=== PATIENT | male | born 1995 | race Caucasian/White ===

== ENCOUNTER 2022-08-12 11:29 | Observation (INO) ==
[2022-08-12] MEDS ORDERED: SODIUM CHLORIDE 0.9% 500 ML IV STA (11:37)
[2022-08-12 12:58] LABS: Basophils # (auto) 0.03 K/uL (0-0.2); Basophils % (auto) 0.4 %; Eosinophils # (auto) 0.04 K/uL (0-0.50); Eosinophils % (auto) 0.6 %; Hematocrit (blood only) 42.9 % (42.0-52.0); Hemoglobin 15.2 g/dl (14.0-18.0); Immature Granulocytes # (auto) 0.01 K/uL (0.01-0.20); Immature Granulocytes % (auto) 0.1 %; Lymphocytes # (auto) 1.29 K/uL (1.2-3.4); Lymphocytes % (auto) 19.3 %; Mean Corpuscular Hemoglobin 30.2 pg (25.0-34.0); Mean Corpuscular Hgb Conc 35.4 g/dL (32.0-36.0); Mean Corpuscular Volume 85.3 fL (80.0-100.0); Mean Platelet Volume 11.9 fL (9.4-12.4); Monocytes # (auto) 0.58 K/uL (0.11-0.59); Monocytes % (auto) 8.7 %; Neutrophils # (auto) 4.75 K/uL (1.40-6.50); Neutrophils % (auto) 70.9 %; Platelet Count 210 K/uL (130-400); RDW Coefficient of Variation 12.4 % (11.5-14.5); RDW Standard Deviation 38.4 fL (36.4-46.3); Red Blood Count 5.03 M/uL (4.70-6.10)
[2022-08-12 13:18] LABS: Alanine Aminotransferase 25 U/L (7-52); Albumin Globulin Ratio 1.5 (0.9-2); Albumin Level 4.4 gm/dl (3.4-5.0); Alkaline Phosphatase 63 U/L (34-104); Anion Gap 7 (3-11); Aspartate Aminotransferase 18 U/L (13-39); BUN Creatinine Ratio 6.8 (10-20); Bilirubin,Total 0.7 mg/dl (0.2-1.0); Blood Urea Nitrogen 7 mg/dl (6-23); Calcium 9.4 mg/dl (8.6-10.3); Carbon Dioxide 28 mmol/L (21-32); Chloride 104 mmol/L (98-107); Est GFR (Non-African American) 98.4 ml/min; Globulin 2.9 gm/dl (2.5-4.0); Glucose 106 mg/dl (70-99(Fasting)); Potassium 3.6 mmol/L (3.5-5.1); Sodium 139 mmol/L (136-145); Total Protein 7.3 gm/dl (6.0-8.3)
--- NOTE | 2022-08-12 13:46 | Emergency Department Note ---
ED Provider Note History of Present Illness Chief Complaint: Flank Pain Stated Complaint: STILL IN PAIN Time Seen by Provider: 08/12/22 13:40 This is a 27-year-old male with a history of asthma who presents with right back and abdominal pain. He has a known proximal ureteral stone on the right side that was initially identified on 08/09/2022 (6 mm) via CT scan. He was seen again in this emergency department last night for uncontrolled pain and vomiting. KUB demonstrated minimal progression of the stone. Patient was comfortable with being discharged home last night and had a urology appointment this morning and saw Dr. Cisneros who, per chart review, was hopeful the patient would be able to make it to 4 days from now (Monday) for an outpatient ureteroscopy and laser lithotripsy. Patient states that his pain has become much more severe (10 out of 10) and he has ongoing nausea. He took Zofran p.o. and 600 mg ibuprofen prior to coming to the emergency department. He has only vomited a little bit today. Has been drinking plenty of fluids. Was given 1 L IV fluids while waiting in the ED waiting room. He has ongoing blood in his urine. Denies any dysuria. The majority of his pain is located in the right low back and wraps around into his groin. Right now he describes pain "everywhere" and "like it is expanding." He has not had any fevers but does endorse chills. Home Medications Medication Instructions Recorded Confirmed Type ondansetron 4 mg disintegrating 4 mg PO Q8H PRN nausea and 08/09/22 08/12/22 Rx tablet vomiting #10 tabs oxycodone 5 mg tablet 5 mg PO Q6H PRN pain #12 tabs 08/09/22 08/12/22 Rx tamsulosin 0.4 mg capsule (Flomax) 0.4 mg PO DAILY #14 caps 08/09/22 08/12/22 Rx azelastine 137 mcg (0.1 %) nasal 2 spray intranasal BID 08/11/22 08/12/22 History spray aerosol montelukast 10 mg tablet 10 mg PO DAILY 08/11/22 08/12/22 History albuterol sulfate 90 mcg/actuation 2 puff inhalation UD PRN Shortness 08/12/22 08/12/22 History aerosol inhaler Of Breath Or Wheezing Allergies Allergy/AdvReac Type Severity Reaction Status Date / Time No Known Drug Allergies Allergy Verified 08/12/22 09:37 Past Med/Surg History Medical History Asthma Surgical History Hx of wisdom tooth extraction Social History Smoking Status: Never smoker Hx Alcohol Use: Yes Alcohol type: beer, wine and hard liquor Hx Substance Use: No Preferred Language: Croatian [employer] Director Required: No Beliefs That Will Affect Care: None Current Living Situation: Spouse Current Living Situation Comment: second floor apartment with stairs to enter Other Information That Helps Us Care for You: No Feels Safe at Home: Yes Safety Concerns: Feels Safe At This Time Assistive Devices: None Physical Exam Vital Signs Vital Signs - 24 hr 08/12/22 11:30 08/12/22 13:47 08/12/22 14:29 Temperature 98.4 F Temperature Source Temporal Artery Scan Pulse Rate 64 Pulse Rate [Finger] 71 Respiratory Rate 20 20 Respiratory Effort / Characteristics Non-Labored Spontaneous Non-Labored Spontaneous Respiratory Depth Normal Normal Blood Pressure 143/83 H Blood Pressure [Right Arm] 145/76 H Blood Pressure Mean 103 Blood Pressure Mean [Right Arm] 99 Pulse Oximetry 96 98 94 Oxygen Delivery Method Room Air Room Air Room Air Sepsis Recent Fever Within 48 Hours No Sepsis New/Unexplained Change in Mental Status No Sepsis Action Taken by Nursing No Action Required CONSTITUTIONAL: Well developed, well nourished, in a moderate amount of pain with eyes closed, rocking back and forth moaning. HEAD: Normocephalic, atraumatic. EYES: conjunctivae normal, extraocular muscles intact. ENMT: External ears normal. Nose with normal external appearance, no congestion. Oral mucous membranes moist. Oropharynx normal. NECK: Full active range of motion. RESPIRATORY: Breathing unlabored and symmetric. Lungs clear to auscultation bilaterally. No wheeze, rales, or rhonchi. CARDIOVASCULAR: Regular rate and rhythm. No murmurs, rubs, or gallops. ABDOMEN: Normal bowel sounds. Soft, nontender, no peritonitis. No masses. No CVA tenderness bilaterally. MUSCULOSKELETAL: Moves all extremities at all joints without pain or difficulty. No cyanosis or edema. SKIN: [place], warm, dry. NEUROLOGIC: Awake, alert, oriented. Gaze is conjugate. Face symmetric. Moves head and all four extremities spontaneously. Course Administered Medications Acetaminophen (Acetaminophen 500 Mg Tab) 1,000 mg PO TID [facility] Stop: 09/11/22 20:59 Last Admin: 08/12/22 20:43 Dose: 1,000 mg Documented By: HAYDEE Potassium Chloride/Sodium Chloride (1/2 Nss + 20meq Kcl 1000ml) 20 meq in 1,000 mls @ 125 mls/hr IV .Q8H [facility]; Protocol Stop: 09/11/22 18:22 Last Admin: 08/12/22 19:42 Dose: 125 mls/hr Documented By: HAYDEE Ketorolac Tromethamine (Ketorolac 30 Mg/Ml Vial) 30 mg IV Q6H [facility] Stop: 08/13/22 12:24 Last Admin: 08/12/22 18:55 Dose: 30 mg Documented By: JHON Ondansetron HCl (Ondansetron Inj 2 Mg/Ml 2 Ml Vial) 4 mg IV Q6H PRN PRN Reason: Nausea And Vomiting Stop: 08/13/22 07:00 Last Admin: 08/12/22 20:43 Dose: 4 mg Documented By: HAYDEE Discontinued Medications Hydromorphone HCl (Hydromorphone Inj 0.5 Mg/0.5 Ml Syr) 0.5 mg IV NOW STA Stop: 08/12/22 14:00 Last Admin: 08/12/22 14:16 Dose: 0.5 mg Documented By: ELIZABETH Hydromorphone HCl (Hydromorphone Inj 0.5 Mg/0.5 Ml Syr) 0.5 mg IV NOW STA Stop: 08/12/22 15:46 Last Admin: 08/12/22 15:54 Dose: 0.5 mg Documented By: CHUCK Sodium Chloride (Nss) 500 mls @ 999 mls/hr IV .Q31M STA Stop: 08/12/22 12:07 Last Infusion: 08/12/22 13:51 Dose: 0 mls/hr Documented By: Admin: 08/12/22 13:00 Dose: 999 mls/hr Documented By: AYLEEN Acetaminophen (Ofirmev) 1,000 mg in 100 mls @ 400 mls/hr IV NOW STA Stop: 08/12/22 14:13 Last Infusion: 08/12/22 14:41 Dose: 0 mls/hr Documented By: Admin: 08/12/22 14:16 Dose: 400 mls/hr Documented By: ELIZABETH Sodium Chloride (Nss 1000ml) 1,000 mls @ 999 mls/hr IV .Q1H1M ONE Stop: 08/12/22 16:45 Last Infusion: 08/12/22 18:26 Dose: 0 mls/hr Documented By: Admin: 08/12/22 15:55 Dose: 999 mls/hr Documented By: CHUCK Lactated Ringer's (Lr) 1,000 mls @ 999 mls/hr IV .Q1H1M ONE Stop: 08/12/22 18:21 Last Admin: 08/12/22 18:26 Dose: Not Given Documented By: KDSofia Sodium Chloride (Nss 1000ml) 1,000 mls @ 999 mls/hr IV .Q1H1M [facility] Stop: 08/12/22 18:35 Last Infusion: 08/12/22 19:31 Dose: 0 mls/hr Documented By: Admin: 08/12/22 18:30 Dose: 999 mls/hr Documented By: JHON Ketorolac Tromethamine (Ketorolac Tromethamine 15 Mg/Ml Vial) 15 mg IV NOW STA Stop: 08/12/22 17:20 Last Admin: 08/12/22 17:55 Dose: 15 mg Documented By: CHUCK Medical Decision Making Differential Diagnosis Renal colic, hydronephrosis, UTI, pyelonephritis, musculoskeletal pain, muscle spasm, uncontrolled pain, among other pathology Medical Records Attestation: I reviewed the patient's medical records. (Reviewed prior ED and urology notes) Laboratory Data 08/12/22 12:15 08/12/22 12:15 Lab Results 08/12/22 08/12/22 08/12/22 Range/Units 12:15 12:15 13:59 WBC 6.70 (4.8-10.8) K/ul RBC 5.03 (4.70-6.10) M/uL Hgb 15.2 (14.0-18.0) g/dl Hct 42.9 (42.0-52.0) % MCV 85.3 (80.0-100.0) fL MCH 30.2 (25.0-34.0) pg MCHC 35.4 (32.0-36.0) g/dL RDW Std Deviation 38.4 (36.4-46.3) fL RDW Coeff of Sonu 12.4 (11.5-14.5) % Plt Count 210 (130-400) K/uL MPV 11.9 (9.4-12.4) fL Immature Gran % (Auto) 0.1 % Neut % (Auto) 70.9 % Lymph % (Auto) 19.3 % [place] % (Auto) 8.7 % Eos % (Auto) 0.6 % Baso % (Auto) 0.4 % Neut # (Auto) 4.75 (1.40-6.50) K/uL Lymph # (Auto) 1.29 (1.2-3.4) K/uL [place] # (Auto) 0.58 (0.11-0.59) K/uL Eos # (Auto) 0.04 (0-0.50) K/uL Baso # (Auto) 0.03 (0-0.2) K/uL Immature Gran # (Auto) 0.01 (0.01-0.20) K/uL Sodium 139 (136-145) mmol/L Potassium 3.6 (3.5-5.1) mmol/L Chloride 104 (98-107) mmol/L Carbon Dioxide 28 (21-32) mmol/L Anion Gap 7 (3-11) BUN 7 (6-23) mg/dl Creatinine 1.03 (0.6-1.4) mg/dl Est Cr Clr Drug Dosing Not Reportable Est GFR ( Amer) 114.0 ml/min Est GFR (Non-Af Amer) 98.4 ml/min BUN/Creatinine Ratio 6.8 L (10-20) Glucose 106 H (70-99(Fasting)) mg/dl Calcium 9.4 (8.6-10.3) mg/dl Total Bilirubin 0.7 (0.2-1.0) mg/dl AST 18 (13-39) U/L ALT 25 (7-52) U/L Alkaline Phosphatase 63 (34-104) U/L Total Protein 7.3 (6.0-8.3) gm/dl Albumin 4.4 (3.4-5.0) gm/dl Globulin 2.9 (2.5-4.0) gm/dl Albumin/Globulin Ratio 1.5 (0.9-2) Lipase 6 L Cancelled (11-82) U/L Urine Color Urine Appearance (Clear) Urine pH (4.5-7.5) Ur Specific [place] (1.000-1.030) Urine Protein (Negative) Urine Glucose (UA) (Negative) Urine Ketones (Negative) Urine Blood (Negative) Urine Nitrite (Negative) Urine Bilirubin (Negative) Urine Urobilinogen (Negative) Ur Leukocyte Esterase (Negative) Urine WBC (Auto) (0-5) /hpf Urine RBC (Auto) (0-4) /hpf U Hyaline Cast (Auto) (0-5) /lpf U Epithel Cells (Auto) (0-5) /lpf Urine Bacteria (Auto) (Negative) SARS-CoV-2, RNA, NAAT (NEGATIVE) 08/12/22 08/12/22 Range/Units 14:20 15:18 WBC (4.8-10.8) K/ul RBC (4.70-6.10) M/uL Hgb (14.0-18.0) g/dl Hct (42.0-52.0) % MCV (80.0-100.0) fL MCH (25.0-34.0) pg MCHC (32.0-36.0) g/dL RDW Std Deviation (36.4-46.3) fL RDW Coeff of Sonu (11.5-14.5) % Plt Count (130-400) K/uL MPV (9.4-12.4) fL Immature Gran % (Auto) % Neut % (Auto) % Lymph % (Auto) % [place] % (Auto) % Eos % (Auto) % Baso % (Auto) % Neut # (Auto) (1.40-6.50) K/uL Lymph # (Auto) (1.2-3.4) K/uL [place] # (Auto) (0.11-0.59) K/uL Eos # (Auto) (0-0.50) K/uL Baso # (Auto) (0-0.2) K/uL Immature Gran # (Auto) (0.01-0.20) K/uL Sodium (136-145) mmol/L Potassium (3.5-5.1) mmol/L Chloride (98-107) mmol/L Carbon Dioxide (21-32) mmol/L Anion Gap (3-11) BUN (6-23) mg/dl Creatinine (0.6-1.4) mg/dl Est Cr Clr Drug Dosing Est GFR ( Amer) ml/min Est GFR (Non-Af Amer) ml/min BUN/Creatinine Ratio (10-20) Glucose (70-99(Fasting)) mg/dl Calcium (8.6-10.3) mg/dl Total Bilirubin (0.2-1.0) mg/dl AST (13-39) U/L ALT (7-52) U/L Alkaline Phosphatase (34-104) U/L Total Protein (6.0-8.3) gm/dl Albumin (3.4-5.0) gm/dl Globulin (2.5-4.0) gm/dl Albumin/Globulin Ratio (0.9-2) Lipase (11-82) U/L Urine Color Yellow Urine Appearance Clear (Clear) Urine pH 5.5 (4.5-7.5) Ur Specific [place] 1.014 (1.000-1.030) Urine Protein Negative (Negative) Urine Glucose (UA) Negative (Negative) Urine Ketones Trace H (Negative) Urine Blood 3+ H (Negative) Urine Nitrite Negative (Negative) Urine Bilirubin Negative (Negative) Urine Urobilinogen Negative (Negative) Ur Leukocyte Esterase Negative (Negative) Urine WBC (Auto) 1-5 (0-5) /hpf Urine RBC (Auto) >30 H (0-4) /hpf U Hyaline Cast (Auto) 0 (0-5) /lpf U Epithel Cells (Auto) 0-5 (0-5) /lpf Urine Bacteria (Auto) Negative (Negative) SARS-CoV-2, RNA, NAAT NEGATIVE (NEGATIVE) MDM Narrative This is a 27-year-old male who returns to the emergency department for his third visit secondary to a right proximal ureteral stone that was initially identified 3 days ago in this emergency department. Recent KUB from yesterday demonstrates minimal progression of the stone. He saw urology this morning who planned a ureteroscopy and laser lithotripsy for 4 days from now however the patient has 10 out of 10 pain despite taking oxycodone and does not feel he can wait that long. On initial exam he does appear to be in a moderate amount of pain, rocking back and forth and moaning. Remainder of exam is unremarkable, vitals are reassuring. He was given IV Dilaudid, IV Tylenol, and IV fluids. Labs: No leukocytosis or anemia. No electrolyte disturbances. Normal renal fu nction. Urine with no evidence of infection, 3+ blood is present. Patient required an additional dose of IV Dilaudid in the emergency department. I discussed admission versus discharge with him and the individual accompanying him and it was felt that the patient would return again with uncontrolled pain as this has been ongoing since he was initially diagnosed with a stone several days ago. I did discuss the case with Dr. Parker (urology on-call) who stated taking the patient to the OR would be feasible within the next few days depending on OR availability. Discussed the case with [facility] hospitalist group Dr. Dykes who will admit the patient for further management and urology consult. Impression Renal colic on right side, Uncontrolled pain, Hematuria Discharge Plan Visit Data Chief Complaint: Flank Pain Stated Complaint: STILL IN PAIN ED Provider: Mayra Cano ED Midlevel Provider: Júnior Hobbs Discharge Problem: Renal colic on right side, Uncontrolled pain, Hematuria Patient Disposition: Admitted As Inpatient Condition: Fair Discharge Instructions Interventions: ED Discharge Assessment Last Done: 08/12/22 18:35
[2022-08-12] MEDS ORDERED: HYDROmorphone INJ 0.5 MG/0.5 ML SYR IV STA ×2 (13:59→15:45)
[2022-08-12] MEDS ORDERED: ACETAMINOPHEN 1,000 MG/100 ML VIAL IV STA (13:59)
[2022-08-12 14:44] LABS: Lipase 6 U/L (11-82)
[2022-08-12] MEDS ORDERED: SODIUM CHLORIDE 0.9% 1000ML 1,000 ML IV ONE (15:45)
[2022-08-12 16:04] LABS: Appearance Urine Clear (Clear); Bacteria Urine Automated Negative (Negative); Bilirubin Urine Negative (Negative); Blood Urine 3+ (Negative); Cast Urine Automated 0 /lpf (0-5); Color Urine Yellow; Epithelial Cell Urine Auto 0-5 /lpf (0-5); Glucose Urine UA Negative (Negative); Ketones Urine Trace (Negative); Leukocyte Esterase Urine Negative (Negative); Nitrite Urine Negative (Negative); Protein Urine Negative (Negative); RBC Urine Automated >30 /hpf (0-4); Specific Gravity Urine 1.014 (1.000-1.030); Urobilinogen Urine Negative (Negative); pH Urine 5.5 (4.5-7.5)
[2022-08-12] MEDS ORDERED: KETOROLAC TROMETHAMINE 15 MG/ML VIAL IV STA (17:19)
[2022-08-12] MEDS ORDERED: LACTATED RINGER'S 1,000 ML IV ONE (17:21)
[2022-08-12] MEDS ORDERED: SODIUM CHLORIDE 0.9% 1000ML 1,000 ML IV SCH (17:35)
--- NOTE | 2022-08-12 17:37 | History & Physical Report ---
Date of Service August 12, 2022 Assessment & Plan (1) Calculus of proximal right ureter: Plan: IV fluids Pain management with acetaminophen 1g PO TID BANDAR, Toradol 30mg IV q6h, morphine 4mg IV PRN for breakthrough pain Continue tamsulosin NPO after midnight Consult urology - discussed with Dr Parker, hopefully plan on stent tomorrow (2) Renal colic on right side: (3) Hydronephrosis: Admission and Anticipated Discharge Date Admission Date: August 12, 2022 History of Present Illness Chief Complaint: Flank pain Primary Care Provider: Dank Choe DO Mohsen Crisostomo is a 27 year old male who presents to the ER with flank pain. He was in the Er on August 09 and diagnosed with a 6mm kidney stone in the proximal right ureter. He was discharged with pain medication, tamsulosin and follow up with urology. He returned to the ER yesterday with nausea, vomiting and XR KUB showing minimal migration of the stone. He followed up with urology earlier today and tentatively planned for lithotripsy on Monday. However his flank pain severity 10/10 is getting longer in duration and increased frequency of attacks. No radiation. No dysuria, fever or chills. Today he took acetaminophen, Advil and oxycodone and felt his pain did not improve. Case was discussed with Dr Parker. The patient does not feels he is able to cope at home at this time. Urology planning on cystoscopy and ureteral stent placement tomorrow. Allergies Allergy/AdvReac Type Severity Reaction Status Date / Time No Known Drug Allergies Allergy Verified 08/12/22 09:37 Home Medications Medication Instructions Recorded Confirmed Type ondansetron 4 mg disintegrating 4 mg PO Q8H PRN nausea and 08/09/22 08/12/22 Rx tablet vomiting #10 tabs oxycodone 5 mg tablet 5 mg PO Q6H PRN pain #12 tabs 08/09/22 08/12/22 Rx tamsulosin 0.4 mg capsule (Flomax) 0.4 mg PO DAILY #14 caps 08/09/22 08/12/22 Rx azelastine 137 mcg (0.1 %) nasal 2 spray intranasal BID 08/11/22 08/12/22 History spray aerosol montelukast 10 mg tablet 10 mg PO DAILY 08/11/22 08/12/22 History albuterol sulfate 90 mcg/actuation 2 puff inhalation UD PRN Shortness 08/12/22 08/12/22 History aerosol inhaler Of Breath Or Wheezing Past Med/Surg History Medical History Asthma Surgical History Hx of wisdom tooth extraction Social History Smoking Status: Never smoker Hx Alcohol Use: Yes Alcohol type: beer, wine and hard liquor Hx Substance Use: No Preferred Language: Marshallese Vegetable Tester Required: No Beliefs That Will Affect Care: None Current Living Situation: Spouse Current Living Situation Comment: second floor apartment with stairs to enter Other Information That Helps Us Care for You: No Feels Safe at Home: Yes Safety Concerns: Feels Safe At This Time Assistive Devices: None Review of Systems Review of Systems: All systems reviewed & are unremarkable except as noted in HPI & below Physical Exam Constitutional: WD/WN, vitals as above Respiratory: normal respiratory effort, lungs clear to auscultation Cardiovascular: RRR, no murmur, no edema Gastrointestinal (Abdomen): normal bowel sounds, soft, nontender, no hepatosplenomegaly Skin: no rashes, warm and dry Neurologic: moves all extremities and awake; not confused Genitourinary: + CVA tenderness (right) Results & Data Results & Data Vital Signs (Past 12 Hours) Vital Signs Temp Pulse Pulse Resp BP BP Pulse Ox 08/12/22 14:29 94 08/12/22 13:47 71 20 145/76 H 98 08/12/22 11:30 36.9 C 64 20 143/83 H 96 O2 Del Method 08/12/22 14:29 Room Air 08/12/22 13:47 Room Air 08/12/22 11:30 Room Air Laboratory Results Abnormal lab results 08/12/22 08/12/22 Range/Units 12:15 15:18 BUN/Creatinine Ratio 6.8 L (10-20) Glucose 106 H (70-99(Fasting)) mg/dl Lipase 6 L (11-82) U/L Urine Ketones Trace H (Negative) Urine Blood 3+ H (Negative) Urine RBC (Auto) >30 H (0-4) /hpf Diagnostic Findings KUB CLINICAL HISTORY: Right ureteral stone. COMPARISON STUDY: CT of the abdomen and pelvis August 09, 2022. FINDINGS: There has been minimal distal migration of a 4 mm proximal right ureteral calculus. No additional urinary calculi are identified. Bowel gas pattern is normal. IMPRESSION: Minimal distal migration of a 4 mm proximal right ureteral calculus. Medications Administered ER Medications Given: NSS 500ml bolus Dilaudid 0.5mg IV Acetaminophen 1000mg IV NSS 1000ml bolus Code Status & VTE Plan Code Status Full VTE Prophylaxis Plan VTE Prophylaxis will be ordered: No Reason for no VTE drug order: Treatment not indicated PG Care Time/CCT Total # of Minutes Spent Total Time Spent with Patient: Total time spent is greater than 50% in coordination of care (as documented) at patient's floor/unit and/or counseling patient: Coding Level of Care Code 33544 INT INP/OBS CARE 2/55MIN Diagnoses Calculus of proximal right ureter N20.1 Renal colic on right side N23 Hydronephrosis N13.30
[2022-08-12] MEDS: KETOROLAC 30 MG/ML VIAL IV SCH (18:55)
[2022-08-12] MEDS: SODIUM CHLOR 0.45% + 20MEQ KCL 20 MEQ/1,000 ML BAG IV SCH (19:42)
[2022-08-12] MEDS: ACETAMINOPHEN 500 MG TAB PO SCH (20:43)
[2022-08-12] MEDS: ONDANSETRON INJ 2 MG/ML 2 ML VIAL IV PRN (20:43)
--- NOTE | 2022-08-12 21:45 | Urology Consultation ---
Date of Consultation August 12, 2022 Assessment & Plan (1) Right distal ureteral calculus: Patient has been admitted on the hospitalist service. Recommend proceeding as follows: Provide analgesicsprovide antiemetics Provide IV fluid for hydration Provide Flomax for expulsive therapy Due to the patient's unremitting pain he is tentatively scheduled for cystoscopy with Dr. Parker tomorrow. I do not feel an urgent operation is required at this time as the patient is normotensive without tachycardia or leukocytosis. He is also noted to be afebrile. Patient should be n.p.o. after midnight tonight. Additional recommendations be forthcoming based on operative findings and his postoperative recovery History of Present Illness Reason for Consultation: Nephrolithiasis Attending Physician: Anibal Dykes MD History of Present Illness This is a 27-year-old male who was seen in the emergency department on 08/09/2022 as well as 08/11/2022 secondary to right flank pain. The patient notes that his pain is primarily in the right flank with some radiation to his abdomen. He did have some nausea and vomiting but denies any fevers, shakes, or chills. He denies any urinary symptoms such as dysuria or visible hematuria. While in the emergency department the patient did have imaging performed during each visit.. The patient did have a CT scan on 08/09/2022. This study showed the patient had a 6 mm obstructing kidney stone in the right proximal ureter resulting in right- sided hydronephrosis. In addition the patient had a KUB x-ray performed on 08/11/2022. This did show some distal migration of the previously noted stone which was measured at approximately 4 mm on this study. Patient also had labs performed in the emergency department and during both visits CBC revealed white blood cell count, hemoglobin, hematocrit, platelet count were within normal range. He also had chemistry profiles at which time both visits showed his sodium and potassium were normal. His BUN and creatinine were also noted be normal during each visit. The patient did have a urinalysis during his visit on 08/09/2022 that did show negative nitrites but trace leukocyte Estrace. There is no bacteria on the study and only 5-10 white blood cells per high-power field. The patient was able to be discharged with outpatient follow-up. The patient did see Dr. Cisneros in the office today and plans were put in place for patient to have a cystoscopy with possible laser lithotripsy next week. Patient notes that his pain returned and was unremitting so he presented to the emergency department. Today in the emergency department the patient had repeat labs were CBC revealed white blood cell count, hemoglobin, hematocrit, platelet count were all normal. Chemistry profile again demonstrated normal potassium, sodium, BUN, and creatinine. Urinalysis was repeated that again was negative for nitrites and this study was negative for leukocyte Estrace. There were only 1-5 white blood cells per high-power field and no bacteria. Since admission the hospital the patient notes that his pain is currently well controlled. He does report he has had several episodes of nausea and vomiting since his kidney stone began giving him troubles. He has not had any visible hematuria and he denies dysuria. He denies any fevers, shakes, or chills as noted during his previous visits. At the time my interview he was resting comfortably in bed he was in no distress. Allergies Allergy/AdvReac Type Severity Reaction Status Date / Time No Known Drug Allergies Allergy Verified 08/12/22 09:37 Home Medications Medication Instructions Recorded Confirmed Type ondansetron 4 mg disintegrating 4 mg PO Q8H PRN nausea and 08/09/22 08/12/22 Rx tablet vomiting #10 tabs oxycodone 5 mg tablet 5 mg PO Q6H PRN pain #12 tabs 08/09/22 08/12/22 Rx tamsulosin 0.4 mg capsule (Flomax) 0.4 mg PO DAILY #14 caps 08/09/22 08/12/22 Rx azelastine 137 mcg (0.1 %) nasal 2 spray intranasal BID 08/11/22 08/12/22 History spray aerosol montelukast 10 mg tablet 10 mg PO DAILY 08/11/22 08/12/22 History albuterol sulfate 90 mcg/actuation 2 puff inhalation UD PRN Shortness 08/12/22 08/12/22 History aerosol inhaler Of Breath Or Wheezing Patient History Medical History Asthma Surgical History Hx of wisdom tooth extraction Social History Smoking Status: Never smoker Hx Alcohol Use: Yes Alcohol type: beer, wine and hard liquor Hx Substance Use: No Preferred Language: Kinyarwanda [employer] Cashier Required: No Beliefs That Will Affect Care: None Current Living Situation: Spouse Current Living Situation Comment: second floor apartment with stairs to enter Other Information That Helps Us Care for You: No Feels Safe at Home: Yes Safety Concerns: Feels Safe At This Time Assistive Devices: None Review of Systems Constitutional: no fever and no chills Eyes: no eye pain Ear, Nose, Mouth, Throat: no ear pain Respiratory: no cough and no dyspnea Cardiovascular: no chest pain Gastrointestinal: + abdominal pain (Radiating from right flank), + nausea and + vomiting Genitourinary: + as per Subjective / HPI Musculoskeletal: + back pain (Right flank) Integumentary: no rash Neurologic: no localized weakness Physical Exam Constitutional: WD/WN, vitals as above Eyes: no conjunctival abnormality ENMT: Ears: no hearing impairment and no external ear abnormality Mouth: no oropharynx abnormality Neck: trachea midline Respiratory: normal respiratory effort; no respiratory distress and no labored breathing Cardiovascular: Rate/Rhythm: regular rate and regular rhythm Gastrointestinal (Abdomen): Soft and nondistended. Musculoskeletal: No calf tenderness Skin: no rashes Neurologic: moves all extremities Psychiatric: A+Ox3, euthymic affect Genitourinary: no CVA tenderness (No CVA tenderness noted the time of my exam) Results & Data Vital Signs (Past 12 Hours) Vital Signs Temp Pulse Pulse Resp BP BP Pulse Ox 08/12/22 18:35 08/12/22 18:30 37 C 68 18 139/80 95 08/12/22 14:29 94 08/12/22 13:47 71 20 145/76 H 98 08/12/22 11:30 36.9 C 64 20 143/83 H 96 O2 Del Method 08/12/22 18:35 Room Air 08/12/22 18:30 Room Air 08/12/22 14:29 Room Air 08/12/22 13:47 Room Air 08/12/22 11:30 Room Air PG Care Time/CCT Total # of Minutes Spent Total Time Spent with Patient: Total time spent is greater than 50% in coordination of care (as documented) at patient's floor/unit and/or counseling patient: Coding Level of Care Code 18647 OFFICE CONSULT LVL Diagnoses Right distal ureteral calculus N20.1
[2022-08-13] MEDS: KETOROLAC 30 MG/ML VIAL IV SCH ×4 (00:12→20:45)
[2022-08-13] MEDS: SODIUM CHLOR 0.45% + 20MEQ KCL 20 MEQ/1,000 ML BAG IV SCH ×3 (03:36→20:44)
[2022-08-13] MEDS: ONDANSETRON INJ 2 MG/ML 2 ML VIAL IV PRN (03:38)
--- NOTE | 2022-08-13 06:53 | Anesthesiology Consultation ---
Date of Service August 13, 2022 Assessment & Plan Chart Review Chart Review: Acceptable Risk for Surgery and Patient NOT seen in Pre Admission Testing Consults Requested none ASA ASA2 Proposed Anesthesia Anesthesia Type: General History Surgery Operation Date: 08/13/22 07:30 Proposed Procedures p Cystoscopy, Right Ureteroscopy, Stone Basketing and Right Stent Placement([facility]) - Elder Parker, DO Height/Weight Height: 5 ft 9 in Weight: 77.111 kg Allergies Allergy/AdvReac Type Severity Reaction Status Date / Time No Known Drug Allergies Allergy Verified 08/12/22 09:37 Medications Home Medications Medication Instructions Recorded Confirmed Last Taken ondansetron 4 mg disintegrating 4 mg PO Q8H PRN nausea and 08/09/22 08/12/22 Unknown tablet vomiting #10 tabs oxycodone 5 mg tablet 5 mg PO Q6H PRN pain #12 tabs 08/09/22 08/12/22 Unknown tamsulosin 0.4 mg capsule (Flomax) 0.4 mg PO DAILY #14 caps 08/09/22 08/12/22 Unknown azelastine 137 mcg (0.1 %) nasal 2 spray intranasal BID 08/11/22 08/12/22 Unknown spray aerosol montelukast 10 mg tablet 10 mg PO DAILY 08/11/22 08/12/22 Unknown albuterol sulfate 90 mcg/actuation 2 puff inhalation UD PRN Shortness 08/12/22 08/12/22 Unknown aerosol inhaler Of Breath Or Wheezing Active Medications Generic Name Dose Route Start Last Admin Trade Name Freq PRN Reason Stop Dose Admin Acetaminophen 1,000 mg 08/12/22 21:00 08/12/22 20:43 Acetaminophen 500 Mg Tab PO 09/11/22 20:59 1,000 mg TID BANDAR Administration Potassium Chloride/Sodium Chloride 20 meq in 1,000 mls @ 125 mls/hr 08/12/22 18:23 08/13/22 03:36 1/2 Nss + 20meq Kcl 1000ml IV 09/11/22 18:22 125 mls/hr .Q8H BANDAR Administration Protocol Ketorolac Tromethamine 30 mg 08/12/22 18:23 08/13/22 06:03 Ketorolac 30 Mg/Ml Vial IV 08/13/22 12:24 30 mg Q6H BANDAR Administration Ondansetron HCl 4 mg 08/12/22 20:04 08/13/22 03:38 Ondansetron Inj 2 Mg/Ml 2 Ml Vial IV 08/13/22 07:00 4 mg Q6H PRN Administration Nausea And Vomiting Past Medical History Medical History Asthma right hydronephrosis Exercise / Class Metabolic Activity II 4-5 Yardwork/Stairs/Walk up hill Past Surgical History Surgical History Hx of wisdom tooth extraction Past Anesthesia History No Hx of Anesthesia Complications and No Family Hx of Anesthesia Complications History of PONV No Hx of PONV and No Hx of Motion Sickness Social History Smoking Status: Never smoker Hx Alcohol Use: Yes Alcohol type: beer, wine and hard liquor alcohol intake frequency: a few times a week Hx Substance Use: No Physical Exam Vital Signs Last Vital Signs Temp 36.7 C 08/12/22 21:53 Pulse 72 08/12/22 21:53 Resp 16 08/12/22 21:53 BP 125/70 08/12/22 21:53 Pulse Ox 97 08/12/22 21:53 O2 Del Method Room Air 08/12/22 21:53 Testing Laboratory Results 08/12/22 12:15 08/12/22 12:15 Urine Color Yellow 08/12/22 15:18 Urine Appearance Clear (Clear) 08/12/22 15:18 Urine pH 5.5 (4.5-7.5) 08/12/22 15:18 Ur Specific [place] 1.014 (1.000-1.030) 08/12/22 15:18 Urine Protein Negative (Negative) 08/12/22 15:18 Urine Glucose (UA) Negative (Negative) 08/12/22 15:18 Urine Ketones Trace (Negative) H 08/12/22 15:18 Urine Nitrite Negative (Negative) 08/12/22 15:18 Ur Leukocyte Esterase Negative (Negative) 08/12/22 15:18 Urine WBC (Auto) 1-5 /hpf (0-5) 08/12/22 15:18 Urine RBC (Auto) >30 /hpf (0-4) H 08/12/22 15:18 U Hyaline Cast (Auto) 0 /lpf (0-5) 08/12/22 15:18 U Epithel Cells (Auto) 0-5 /lpf (0-5) 08/12/22 15:18 Urine Bacteria (Auto) Negative (Negative) 08/12/22 15:18
--- NOTE | 2022-08-13 07:03 | Urology Progress Note ---
Date of Service August 13, 2022 Assessment & Plan (1) Right distal ureteral calculus: Plan Patient with right obstructing ureteral stone and considerable pain and discomfort. Has been unable to pass stone. Continues to have pain episodes with discomfort. Patient has baseline medical history of asthma. Has been tolerating medications but continues to have issues. COVID test was negative. White count is 6.7. Creatinine is 1.03. Patient is currently afebrile. Continues to have severe pain without uncontrollable episodes of time. Risks and benefits discussed at length for procedure. These include bleeding, infection, injury to surrounding tissues or organs, and risks associated with anesthesia. Patient states understanding and agrees to proceed. Will sign consent and proceed. Plan for cystoscopy with possible ureteroscopy and stone treatment on right. Admission and Anticipated Discharge Date Admission Date: August 12, 2022 Subjective Patient admitted with stone and discomfort. Patient is afebrile. Has been undergoing maximum expulsion therapy with oral medications, IV medications, IV fluids, and oral intake. Has not seen stone pass. Has been having discomfort but no severe uncontrollable pain or major issues. Has not developed severe vomiting or other issues. Has not experienced fever or chills. Has been tolerating medications. Is tolerating IV fluids. Has noticed some frequency and urgency. Continued back and flank pain. Does have occasional burning and irritation. No severe episodes or major changes. Patient does not believe the passed a stone. Has not passed a large amount of blood or debris that may be the stone. Review of Systems Review of Systems: All systems reviewed & are unremarkable except as noted in HPI & below Physical Exam Physical Exam: General: Alert and oriented x 3 in no acute distress. Patient is well nourished and well kept. HEENT: Normocephalic Atraumatic. Inspection normal. Cranial Nerves 2-12 Grossly intact. Nares are clear. Neck is supple. Normal inspection of face. Normal inspection of neck. Neurologic: No deficits on inspection. Baseline for motor function and sensory. Psychologic: Normal affect. Respiratory: Nonlabored. No use of accessory muscles. No tachypnea or dyspnea. Cardiovascular: No tachycardia Skin: [place] and Dry. No rashes or visible lesions. Extremities: Moving without issues. No motor deficits on inspection Lymphatics: No edema Abdomen: Soft Non-distended. No acites. No rebound or guarding. Results & Data Vital Signs (Past 12 Hours) Vital Signs Temp Pulse Resp BP Pulse Ox O2 Del Method 08/12/22 21:53 36.7 C 72 16 125/70 97 Room Air PG Care Time/CCT Total # of Minutes Spent Total Time Spent with Patient: Total time spent is greater than 50% in coordination of care (as documented) at patient's floor/unit and/or counseling patient: Coding Level of Care Code 37023 SUB INP/OBS CARE 3/50MIN Diagnoses Right distal ureteral calculus N20.1
[2022-08-13] MEDS ORDERED: MIDAZOLAM HCL 1 MG/ML 2ML VIAL ONE (07:23)
[2022-08-13] MEDS ORDERED: PROPOFOL IV EMULSION 10 MG/ML 20 ML VIAL IV ONE ×2 (07:23→08:04)
[2022-08-13] MEDS ORDERED: fentaNYL citrate PF 100 MCG/2 ML VIAL ONE (07:24)
[2022-08-13] MEDS ORDERED: fentaNYL citrate PF 100 MCG/2 ML VIAL IV PRN (07:37)
[2022-08-13] MEDS ORDERED: ATROPINE SULFATE 0.1 MG/ML 10ML SYR IV PRN (07:37)
[2022-08-13] MEDS ORDERED: PROMETHAZINE HCL 12.5 MG in SODIUM CHLORIDE 0.9% 50 ML IV PRN (07:37)
[2022-08-13] MEDS ORDERED: LABETALOL HCL IV 5 MG/ML 20ML IV PRN (07:37)
[2022-08-13] MEDS ORDERED: NALOXONE HCL 0.4 MG/1 ML VIAL/CARP IV PRN (07:37)
[2022-08-13] MEDS ORDERED: FLUMAZENIL 0.1 MG/1 ML 10 ML VIAL IV PRN (07:37)
[2022-08-13] MEDS ORDERED: ePHEDrine sulfate 50 MG/ML AMP IV PRN (07:37)
[2022-08-13] MEDS ORDERED: ONDANSETRON INJ 2 MG/ML 2 ML VIAL IV PRN ×2 (07:37→15:40)
[2022-08-13] MEDS ORDERED: ceFAZolin 330 MG/ML 1 GM VIAL ONE (07:58)
[2022-08-13] MEDS ORDERED: ceFAZolin 2000MG 2,000 MG/15 ML SYR IV ONE (08:02)
[2022-08-13] MEDS ORDERED: DIATRIZOATE MEGLUMINE 30% 100ML VIAL INSTIL ONE (08:04)
--- NOTE | 2022-08-13 08:14 | Operative Report ---
PG Post Operative Report Pre & Post Diagnosis Operation Date: 08/13/22 07:30 Pre-Op Diagnosis: Right distal ureteral calculus Post-Op Diagnosis: Right distal ureteral calculus I identified the patient and participated in the time-out.: Yes Procedure Operation Date: 08/13/22 07:30 Actual Procedures p Cystoscopy with Right Ureteroscopy, Stone Basket Extraction, Retrograde Pyelogram, and Right Ureteral Stent Placement(Right) - Elder Parker DO Surgeon Elder Parker, II, DO Home [facility] L[facility] None Estimated Blood Loss 1 Findings Consistent with Post-Op Diagnosis Stone impacted in lateral side wall of mid ureter. Stone displaced and then grasped and removed. Specimens Stone Right Ureter Drains 6 Fr Multilength Anesthesia Type General Complications none Disposition Disposition: Recovery Room Indications Patient with bothersome stones. Risks and benefits discussed at length. Description of Procedure Patient was consented and brought back to the operating room. Patient was placed under anesthesia in the supine position and moved to the dorsal lithotomy position. Patient was prepped and draped in the regular sterile fashion. A time out was completed. A 30degree Cystoscope was placed into the bladder and the entire bladder was examined. The UO's were identified. The UO was cannulized with a catheter and a retrograde pyelogram was completed. A wire was then placed. The Rigid ureteroscope was taken into the ureter. The stone was identified. The stone had impacted in the posterior lateral wall of the proximal/mid ureter. The stone was able to be manipulated and moved proximal in the ureter. A basket was selected and the stone was grasped and removed and sent for analysis. The entire area was once again examined. Moderate irritation at sight of stone impaction. No residual large fragments or areas of concern were noted. The scope was slowly removed with the wire left in place. Contrast was placed through the scope for a pyelogram to assist in stent placement. The entire ureter was examined as the scope was slowly removed. No obstructions or other areas of concern were noted. With the wire in place, a 6 Fr Double J stent was placed. It was confirmed with fluoroscopy. With the stent in place, the bladder was emptied. The scope was removed. The patient was cleaned, aroused from anesthesia, and transferred to the pacu in stable condition having tolerated the procedure well with no complications. I was present and participated in all aspects of the procedure. The patient will be monitored in the PACU until transferred. Plan to maintain stent for 7-10 days and remove in office. Will transfer back to floor with plans for followup when discharged. I attest to the content of the Intraoperative Record and any orders documented therein. Any exceptions are noted below.
[2022-08-13] MEDS ORDERED: TAMSULOSIN HCL 0.4 MG CAP PO SCH (09:00)
--- NOTE | 2022-08-13 09:04 | Anesthesiology Progress Note ---
Date of Service August 13, 2022 Anesthesia Post Procedure Vital Signs Vital Signs: Temp Pulse Pulse Pulse Resp BP BP 08/13/22 09:00 37.1 C 60 12 125/81 08/13/22 08:40 54 L 14 132/75 08/13/22 08:30 53 L 13 135/80 08/13/22 08:20 63 16 139/84 08/13/22 08:16 36.0 C L 71 16 136/83 08/12/22 21:53 36.7 C 72 16 125/70 08/12/22 18:35 08/12/22 18:30 37 C 68 18 139/80 08/12/22 14:29 08/12/22 13:47 71 20 145/76 H 08/12/22 11:30 36.9 C 64 20 143/83 H Pulse Ox O2 Del Method O2 Flow Rate 08/13/22 09:00 96 Room Air 08/13/22 08:40 99 Nasal Cannula 2 08/13/22 08:30 100 Nasal Cannula 2 08/13/22 08:20 100 Nasal Cannula 2 08/13/22 08:16 99 Nasal Cannula 2 08/12/22 21:53 97 Room Air 08/12/22 18:35 Room Air 08/12/22 18:30 95 Room Air 08/12/22 14:29 94 Room Air 08/12/22 13:47 98 Room Air 08/12/22 11:30 96 Room Air Pain Intensity Right Abdomen: Pain Intensity: 2 Transfer of Care Handoff Completed per policy Notes Mental Status: alert / awake / arousable Patient Amnestic to Procedure: Yes Nausea / Vomiting: adequately controlled Pain: adequately controlled Airway Patency, RR, SpO2: stable & adequate BP & HR: stable & adequate Hydration State: stable & adequate Anesthetic Complications: no major complications apparent
[2022-08-13] MEDS: MoRPHine SULFATE 4 MG/ML 1 ML CARP\\VIAL IV PRN ×2 (09:39→14:16)
[2022-08-13] MEDS: MONTELUKAST SODIUM 10 MG TABLET PO SCH (09:41)
[2022-08-13] MEDS: ACETAMINOPHEN 500 MG TAB PO SCH ×3 (09:42→20:44)
[2022-08-13] MEDS ORDERED: PHENAZOPYRIDINE HCL 200 MG TAB PO PRN (14:41)
[2022-08-13] MEDS ORDERED: oxyCODONE/APAP 7.5/325MG TAB PO PRN (14:47)
[2022-08-13] MEDS ORDERED: TAMSULOSIN HCL 0.4 MG CAP PO STA (14:54)
--- NOTE | 2022-08-13 15:34 | Hospitalist Progress Note ---
Date of Service August 13, 2022 Assessment & Plan (1) Calculus of proximal right ureter: Plan: 27 y/o male who was discharged home with pain management after diagnosis of a 6 mm kidney stone in the proximal right ureter 08/09 re-presents for worsening flank pain, nausea, and vomiting with minimal migration of the stone seen on KUB now s/p right stent placement with urology. #Calculus of proximal right ureter [] pain control - morphine, tylenol, percs [] PRN zofran [] advance diet as tolerated Admission and Anticipated Discharge Date Admission Date: August 12, 2022 Supervising Physician Co-Signing Physician Notes I saw and examined patient. I agree with assessment and plan and have discussed care with Dr. Hill. Testicular exam unremarkable. Progress diet, ensure no nausea/vomiting, and ensure appropriate pain control. Subjective Patient seen at bedside this AM. He was sleeping as he was post-op. Physical Exam Physical Exam: Gen: well appearing male laying in bed asleep, NAD HEENT: AT NC Resp: no increased work of breathing, no accessory muscle use CV: clinically well perfused Neuro: asleep Skin: warm, dry, no rashes or bruising Results & Data Results & Data Vital Signs (Past 12 Hours) Vital Signs Temp Pulse Pulse Resp BP Pulse Ox O2 Del Method 08/13/22 14:27 36.8 C 63 16 132/82 95 Room Air 08/13/22 10:42 37 C 62 18 137/83 97 Room Air 08/13/22 09:00 37.1 C 60 12 125/81 96 Room Air 08/13/22 08:40 54 L 14 132/75 99 Nasal Cannula 08/13/22 08:30 53 L 13 135/80 100 Nasal Cannula 08/13/22 08:20 63 16 139/84 100 Nasal Cannula 08/13/22 08:16 36.0 C L 71 16 136/83 99 Nasal Cannula O2 Flow Rate 08/13/22 14:27 08/13/22 10:42 08/13/22 09:00 08/13/22 08:40 2 08/13/22 08:30 2 08/13/22 08:20 2 08/13/22 08:16 2 Laboratory Results 08/12/22 Range/Units 15:18 Urine Color Yellow Urine Appearance Clear (Clear) Urine pH 5.5 (4.5-7.5) Ur Specific [place] 1.014 (1.000-1.030) Urine Protein Negative (Negative) Urine Glucose (UA) Negative (Negative) Urine Ketones Trace H (Negative) Urine Blood 3+ H (Negative) Urine Nitrite Negative (Negative) Urine Bilirubin Negative (Negative) Urine Urobilinogen Negative (Negative) Ur Leukocyte Esterase Negative (Negative) Urine WBC (Auto) 1-5 (0-5) /hpf Urine RBC (Auto) >30 H (0-4) /hpf U Hyaline Cast (Auto) 0 (0-5) /lpf U Epithel Cells (Auto) 0-5 (0-5) /lpf Urine Bacteria (Auto) Negative (Negative) Diagnostic Findings KUB 08/11/22 FINDINGS: There has been minimal distal migration of a 4 mm proximal right ureteral calculus. No additional urinary calculi are identified. Bowel gas pattern is normal. IMPRESSION: Minimal distal migration of a 4 mm proximal right ureteral calculus. CTAP 08/09/22 FINDINGS: Lung bases: The heart is normal in size and without pericardial effusion. The lung bases are clear. Liver: The contrast-enhanced liver is normal in size, contour, and attenuation. There is no intrahepatic biliary ductal dilatation. The hepatic veins and portal veins are patent. Gallbladder: Unremarkable. Spleen: Normal in size and attenuation. Pancreas: Unremarkable. Adrenal glands: Unremarkable. Kidneys: The contrast enhanced kidneys are normal in size. There is a 6 known obstructing calculus in the right proximal ureter seen on image #166. This is at the level of L2-L3 and causes mild right hydroureteronephrosis. No additional renal calculi are identified on this unenhanced examination. There is no left- sided hydronephrosis. The kidneys enhance symmetrically. Abdominal vasculature: The abdominal aorta is normal in course and caliber. Bowel: There is no bowel obstruction. The appendix is well-visualized and normal. Peritoneum: There is no intraperitoneal free air or abdominal ascites. There is a small fat-containing umbilical hernia. Lymphadenopathy: None. Pelvic viscera: The bladder is decompressed and appears circumferentially thick walled. The prostate and seminal vesicles are normal as visualized. Skeletal structures: No lytic or blastic lesions are seen. IMPRESSION: 1. There is a 6 mm obstructing calculus in the right proximal ureter. This causes mild right-sided hydronephrosis. 2. No additional renal calculi are clearly identified on this contrast-enhanced examination. 3. The bladder is decompressed and appears thick-walled. Correlate with clinical findings and urinalysis. 4. Additional findings as above. Resident Activity Tracking Resident Involvement: Resident Care Provided Care Provided: [facility] Medicine
[2022-08-14] MEDS: KETOROLAC 30 MG/ML VIAL IV SCH (04:30)
[2022-08-14] MEDS: SODIUM CHLOR 0.45% + 20MEQ KCL 20 MEQ/1,000 ML BAG IV SCH (04:30)
[2022-08-14 06:56] LABS: Hemoglobin 13.3 g/dl (14.0-18.0); Mean Corpuscular Hemoglobin 30.3 pg (25.0-34.0); Mean Corpuscular Hgb Conc 34.1 g/dL (32.0-36.0); Mean Corpuscular Volume 88.8 fL (80.0-100.0); Mean Platelet Volume 12.3 fL (9.4-12.4); Platelet Count 178 K/uL (130-400); RDW Coefficient of Variation 12.5 % (11.5-14.5); RDW Standard Deviation 40.9 fL (36.4-46.3); Red Blood Count 4.39 M/uL (4.70-6.10); White Blood Count 6.67 K/ul (4.8-10.8)
--- NOTE | 2022-08-14 07:07 | Hospitalist Progress Note ---
Date of Service August 14, 2022 Assessment & Plan (1) Calculus of proximal right ureter: Plan: 27 y/o male who was discharged home with pain management after diagnosis of a 6 mm kidney stone in the proximal right ureter 08/09 re-presents for worsening flank pain, nausea, and vomiting with minimal migration of the stone seen on KUB now s/p right stent placement with urology. #Calculus of proximal right ureter [] pain control - morphine, tylenol, percs [] PRN zofran [] advance diet as tolerated Admission and Anticipated Discharge Date Admission Date: August 12, 2022 Subjective Patient seen at bedside this AM. Review of Systems Review of Systems: See HPI Physical Exam Physical Exam: Gen: well appearing male laying in bed asleep, NAD HEENT: AT NC Resp: no increased work of breathing, no accessory muscle use CV: clinically well perfused Neuro: asleep Skin: warm, dry, no rashes or bruising Results & Data Results & Data Vital Signs (Past 12 Hours) Vital Signs Temp Pulse Resp BP Pulse Ox O2 Del Method 08/13/22 21:46 36.8 C 68 16 134/74 96 Room Air Laboratory Results 08/14/22 06:11 08/14/22 06:11
[2022-08-14 07:34] LABS: BUN Creatinine Ratio 5.6 (10-20); Calcium 8.4 mg/dl (8.6-10.3); Creatinine Clr Calc Pharmacy 122.2 ml/min; Est GFR (African American) 134.2 ml/min; Est GFR (Non-African American) 115.8 ml/min; Potassium 3.9 mmol/L (3.5-5.1)
[2022-08-14] MEDS ORDERED: TAMSULOSIN HCL 0.4 MG CAP PO SCH (09:00)
--- NOTE | 2022-08-14 09:10 | Discharge Summary ---
Date of Service August 14, 2022 Admission HPI Per Admitting Provider Mohsen Crisostomo is a 27 year old male who presents to the ER with flank pain. He was in the Er on August 09 and diagnosed with a 6mm kidney stone in the proximal right ureter. He was discharged with pain medication, tamsulosin and follow up with urology. He returned to the ER yesterday with nausea, vomiting and XR KUB showing minimal migration of the stone. He followed up with urology earlier today and tentatively planned for lithotripsy on Monday. However his flank pain severity 10/10 is getting longer in duration and increased frequency of attacks. No radiation. No dysuria, fever or chills. Today he took a cetaminophen, Advil and oxycodone and felt his pain did not improve. Case was discussed with Dr Parker. The patient does not feels he is able to cope at home at this time. Urology planning on cystoscopy and ureteral stent placement tomorrow. Admission Exam Per Admitting Provider Constitutional: WD/WN, vitals as above Respiratory: normal respiratory effort, lungs clear to auscultation Cardiovascular: RRR, no murmur, no edema Gastrointestinal (Abdomen): normal bowel sounds, soft, nontender, no hepatosplenomegaly Skin: no rashes, warm and dry Neurologic: moves all extremities and awake; not confused Genitourinary: + CVA tenderness (right) Principal Diagnosis kidney stone Discharge Exam Gen: well appearing male laying in bed asleep, NAD HEENT: AT NC Resp: no increased work of breathing, no accessory muscle use, CTAB CV: clinically well perfused, RRR no m/r/g Neuro: awake alert Skin: warm, dry, no rashes or bruising Discharge Data Allergies Allergy/AdvReac Type Severity Reaction Status Date / Time No Known Drug Allergies Allergy Verified 08/12/22 09:37 Consultations 08/12/22 17:52 ED Decision to Admit Stat 08/12/22 18:59 Consult Urology Routine Procedures Performed Operation Date: 08/13/22 07:30 Actual Procedures p Cystoscopy, Right Ureteroscopy, Stone Basket Extraction, Retrograde Pyelogram, and Right Ureteral Stent Placement(Right) - Elder Parker, DO Ordered Studies 08/14/22 06:11 08/14/22 06:11 Hospital Course (1) Calculus of proximal right ureter: 27 y/o male who was discharged home with pain management after diagnosis of a 6 mm kidney stone in the proximal right ureter 08/09 re-presents for worsening flank pain, nausea, and vomiting with minimal migration of the stone seen on KUB s/p stone removal and right stent placement with urology on 08/13 tolerating PO with good pain control ready for discharge. #Calculus of proximal right ureter Patient was found to have a 6 mm kidney stone on a previous visit to [facility] on 08/09. He return to the ED with worsening pain, nausea, and vomiting. The stone had not migrated far thus he was taken to the OR for stent placement in the right ureter. At that time the stone was also removed. Plan to remove the stent in office in one week with urology. He is tolerating PO. Pain is well controlled. Stable for discharge. Stone was sent for analysis - outpatient follow up recommended. Sent miralax and docusate for a bowel regimen. Total Time Total Time Spent Total Time Spent (In Minutes): see attending attestation Discharge Plan Discharge Items Patient Disposition: Home - Self-Care Reason For Visit: kidney stone Discharge Diagnosis: kidney stone Condition on Discharge: Fair Activity: Per Instructions section Non-emergency contact: Primary Care Provider and Surgeon Call non-emergency contact if: your symptoms worsen and your temperature is abo ve 101.5 Follow-up/Referrals: Elder Parker DO [Physician] - Dank Choe DO [Primary Care Provider] - Diet: Regular Addtl Attending Provider Instructions: You were admitted to the hospital for a kidney stone. You were treated with lexi gical removal of the stone and stent placement. You will follow up with urology in about a week for removal of the stent. Your pain was well controlled while inpatient and you were tolerating food/drink well at the time of discharge. Opioids can cause constipation. Sent miralax and docusate to your pharmacy to use to help with this. A discharge summary will be sent to your primary care physician to ensure continuity of care. Please bring this discharge summary with you to your next office appointment so that your provider can review it at that time. Follow-up appointments: We have requested a follow-up appointment with your primary care physician within one week of discharge. Please call their office if you do not hear from them. We have requested a follow-up appointment with your surgeon within one week of discharge. Please call their office if you do not hear from them. Keep all your follow-up appointments as already scheduled. If you cannot make an appointment, notify your provider. Medications: Your medication list has been reviewed and reconciled upon discharge to ensure accuracy and continuity of care. An updated list of all your medications is included with your hospital discharge paperwork. Please review this list closely, and make note of any changes. Take your medications as instructed; do not skip a dose of your medicines. Make sure all of your doctors know every medicine you are taking (including [id number] medicines, vitamins, and supplements). Call your primary care provider before taking any new medicines (including over- the- counter medicines, vitamins, and supplements), because some of these may interact with your current medications, or may make your symptoms worse. Tell your primary care provider if you cannot afford your medications. CONTACT YOUR PRIMARY CARE PROVIDER if you experience any of the following: worsening pain blood in urine Difficulty following your treatment plan, or difficulty taking medications CALL 911 OR GO TO THE EMERGENCY DEPARTMENT if you experience any of the following: Sudden, severe abdominal pain or nausea/vomiting Severe chest pain, or chest pain that radiates (moves) to your jaw or arm Sudden, severe shortness of breath or difficulty breathing Thank you for allowing us to participate in your care Pending Studies at Discharge: No Stand-Alone Forms: My [facility] [employer], Smoking Cessation Medications and DC Order Prescriptions: New polyethylene glycol 3350 [Miralax] 17 gram/dose powder 17 g PO DAILY PRN (Reason: constipation) Qty: 238 0RF docusate sodium [Stool Softener] 100 mg capsule 100 mg PO DAILY Qty: 7 0RF Continued tamsulosin [Flomax] 0.4 mg capsule 0.4 mg PO DAILY Qty: 14 0RF ondansetron 4 mg tablet,disintegrating 4 mg PO Q8H PRN (Reason: nausea and vomiting) Qty: 10 0RF oxycodone 5 mg tablet 5 mg PO Q6H PRN (Reason: pain) Qty: 12 0RF Rx Instructions: For initial treatment montelukast 10 mg tablet 10 mg PO DAILY azelastine 137 mcg (0.1 %) aerosol,spray 2 spray INTRANASAL BID albuterol sulfate 90 mcg/actuation HFA aerosol inhaler 2 puff INHALATION UD PRN (Reason: Shortness Of Breath Or Wheezing) Discharge Orders: Discharge Order (Routine); Ordered 08/14/22 Ordered By: Melissa Hill Admission Data Admit Date/Time: 08/12/22 17:33 Attending Provider: Adam No Admit Provider: Anibal Dykes Primary Care Provider: Dank Choe Other Providers: Elder Parker ; Anibal Dykes Other Interventions: Discharge Summary Assessment (RN) Last Done: 08/14/22 11:19 Supervising Physician Co-Signing Physician Notes I saw and examined patient. I agree with assessment and plan as well as discharge plan, and have discussed care with Dr. Hill. Total time spent with Discharge plannin minutes Resident Activity Tracking Resident Involvement: Resident Care Provided Care Provided: Adult Hospital Medicine
[2022-08-14] MEDS: MONTELUKAST SODIUM 10 MG TABLET PO SCH (10:37)
[2022-08-14] MEDS: ACETAMINOPHEN 500 MG TAB PO SCH (10:37)
== END 2022-08-14 12:52 | disposition home or self-care (01) ==
LOC: 3W 11:29 → ED 11:29 → SUATTDRO 17:33 → 3W 18:35